=== PATIENT | female | born 1980 | race Caucasian/White ===

== ENCOUNTER 2022-04-23 03:27 | Emergency (ER) | payer OTHER, MEDICAID, SELFPAY ==
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
--- NOTE | 2022-04-23 03:29 | ECG_ITS ---
Measurements Intervals [place] Rate: 71 P: 51 [place]: 138 QRS: 62 QRSD: 96 T: 80 QT: 387 QTc: 423 Interpretive Statements SINUS RHYTHM NORMAL ELECTROCARDIOGRAM COMPARED TO ECG 06/24/2019 06:53:58 NO SIGNIFICANT CHANGES Electronically Signed On 04-23-2022 8:26:53 CDT by Nahid Mejia M.D.
[2022-04-23 03:32] VITALS: BP 127/91; PULSE 101; RESP 21; TEMP 36.3; O2SAT 95
[2022-04-23 04:10] LABS: Basophils Absolute Auto 0.1 K/mm3 (0.0-0.1); Basophils Percent Auto 0.7 % (0.2-1.2); Eosinophils Absolute Auto 0.4 K/mm3 (0-0.3); Eosinophils Percent Auto 3.9 % (0-4.4); Hematocrit 51.9 % (37.0-47.0); Hemoglobin 16.6 g/dL (12.0-15.0); Immature Granulocyte Absolute 0.02 K/mm3 (0.00-0.031); Immature Granulocyte Percent A 0.2 % (0-0.5); Lymphocytes Absolute Auto 3.95 K/mm3 (0.9-3.2); Lymphocytes Percent Auto 40.2 % (18.3-44.2); Mean Corpuscular Hemoglobin 29.3 pg (26-34); Mean Corpuscular Volume 91.5 fl (80-100); Monocytes Absolute Auto 0.7 K/mm3 (0.1-0.6); Monocytes Percent Auto 6.6 % (2.6-8.5); Neutrophils Absolute Auto 4.8 K/mm3 (1.3-6.7); Neutrophils Percent Auto 48.4 % (45.5-73.1); Platelet Count Result 286 k/mm3 (150-375); Red Blood Count 5.67 M/mm3 (4.2-5.4); Red Cell Distribution Width 12.8 % (11.5-14.5); White Blood Count 9.8 K/mm3 (4.5-10.0)
[2022-04-23] MEDS: IBUPROFEN 400 MG TABLET 800 MG PO (04:20)
[2022-04-23] MEDS: ACETAMINOPHEN 500 MG TABLET 1000 MG PO (04:20)
[2022-04-23 04:21] LABS: INR 0.9; Prothrombin Time 11.9 Seconds (11.1-14.7)
[2022-04-23 04:22] LABS: Partial Thromboplastin Time 28.8 SECONDS (22.3-36.8)
[2022-04-23 04:23] LABS: Alanine Aminotransferase 22 U/L (6-35); Albumin Level 4.7 g/dL (3.5-5.1); Alkaline Phosphatase 74 U/L (38-126); Anion Gap 9 mmol/L (8-16); Aspartate Amino Transferase 24 U/L (14-36); Bilirubin,Total 0.4 mg/dL (0.2-1.3); Blood Urea Nitrogen 13 mg/dL (7-17); Carbon Dioxide 30 mmol/L (22-30); Chloride 104 mmol/L (98-107); Estimated CRCL calculation 99 ml/min; Estimated Glomerular Filt Rate > 60; Glucose 105 mg/dL (65-110); Lipase 147 U/L (23-300); Potassium 4.2 mmol/L (3.4-5.0); Sodium 143 mmol/L (137-145)
[2022-04-23 04:34] LABS: Troponin I < 0.012 ng/mL (0.000-0.034)
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
[2022-04-23 05:36] VITALS: BP 108/73; PULSE 84; RESP 20; O2SAT 99
== END 2022-04-23 05:39 | disposition home or self-care (01) ==
PROVIDERS: Emergency Provider Emergency Medicine
DX: S29.9XXA Unspecified injury of thorax, initial encounter (principal); F41.9 Anxiety disorder, unspecified; F31.81 Bipolar II disorder; V18.4XXA Pedal cycle driver injured in noncollision transport accident in traffic accident, initial encounter; Y93.55 Activity, bike riding
CPT/HCPCS: 36415; 71046; 71110; 80053; 83690; 84484; 85025; 85610; 85730; 93005; 99284; A9270

== ENCOUNTER 2022-08-21 18:51 | Emergency (ER) | payer OTHER, MEDICAID, SELFPAY ==
--- NOTE | 2022-08-21 18:58 | PC.NURSE ---
patient left waiting room without being seen
== END 2022-08-21 19:26 | disposition left against medical advice (07) ==
DX: Z53.21 Procedure and treatment not carried out due to patient leaving prior to being seen by health care provider (principal)
CPT/HCPCS: 99199

== ENCOUNTER 2023-06-05 16:45 | Emergency (ER) | payer OTHER, MEDICAID, SELFPAY ==
[2023-06-05 17:17] VITALS: BP 124/85; PULSE 84; RESP 16; TEMP 37; O2SAT 99
--- NOTE | 2023-06-05 17:28 | ED.FEMALEGU ---
HPI - Female Genitourinary General Chief complaint: Abdominal Pain Stated complaint: UTI Time Seen by Provider: 06/05/23 17:28 Source: patient, RN notes reviewed and old records reviewed Mode of arrival: ambulatory Limitations: no limitations History of Present Illness HPI Narrative: 42-year-old female presents to the [facility] with complaints right lower quadrant pain that started yesterday. Patient states she has started yesterday with some right lower back, right lower quadrant pain yesterday has localized to the right lower quadrant. Denies fevers, chest pain. History of a cholecystectomy, denies any other medical or surgical history Onset (ago): day(s) (1) Related Data Home Medications Medication Instructions Recorded Confirmed olanzapine 2.5 mg tablet 2.5 mg PO DAILY 06/05/23 06/05/23 Allergies Allergy/AdvReac Type Severity Reaction Status Date / Time prednisone Allergy Unknown pain Verified 06/05/23 16:50 Review of Systems Review of Systems: All systems reviewed & are unremarkable except as noted in HPI and below Constitutional: Constitutional: Reports no additional constitutional complaints Eyes: Eyes: Reports no additional eye complaints ENT: Reports system reviewed and no additional complaints, except as documented Cardiovascular: Cardiovascular: Reports no additional cardiovascular complaints, Denies chest pain and Denies dyspnea Respiratory: Respiratory: Reports no additional respiratory complaints, Denies chest congestion, Denies cough and Denies dyspnea Gastrointestinal: Gastrointestinal: Reports as per HPI, Reports abdominal pain (Right lower quadrant), Reports nausea and Denies vomiting Musculoskeletal: Musculoskeletal: Reports no additional musculoskeletal complaints Integumentary/Breasts: Skin/Breast: Reports system reviewed and no additional complaints, except as docu Neurologic: Reports system reviewed and no additional complaints, except as documented Psychiatric: Psychiatric: Reports no additional psychiatric complaints Allergic/Immunologic: Allergic/Immunologic: Reports no additional allergic/immunologic complaints [facility] Past Medical History Medical History Anxiety Bipolar 2 disorder Surgical History Surgical History History of cholecystectomy Hx laparoscopic cholecystectomy Social History Social History Social History: Patient denies alcohol use, smokes pack cigarettes per day Alcohol intake: current Comments At the time of my signature, I reviewed and agree with the nursing past medical, surgical, social, and family history. There is no relevant family history pertinent to the patient complaint. Exam Const: General: cooperative, healthy appearing, comfortable, no acute distress, well developed, alert and well nourished Nutritional Appearance: well nourished Orientation/consciousness: patient oriented x3 Limitations: no limitations HENMT: Head: normal to inspection Ears: hearing grossly normal bilaterally and external ears normal Face/Nose/Sinus: Normal external nose present, Normal nares present, Normal nasal mucous membranes and turbinates present, normal facial exam and face symmetric Face and sinus: normal facial exam and face symmetric Mouth: Yes Normal oral and palatal mucosa present, Yes lip normal and Yes moist mucous membranes Throat: posterior oropharynx normal and uvula midline Eyes: General: appearance normal, both eyes and all related structures Alignment and Position: alignment normal Periorbital: periorbital findings normal Pupils: Equal, round and reactive pupils present EOM: EOMs intact bilaterally Neck: Neck: normal visual inspection, full ROM, no lymphadenopathy and no meningeal signs Chest: Chest palpation & inspection: normal inspection of the chest Resp: Effort & Inspection:
== END 2023-06-05 17:53 | disposition short-term general hospital (02) ==
LOC: EXPCOLL 16:48
PROVIDERS: Emergency Provider Nurse Practitioner
DX: R10.31 Right lower quadrant pain (principal)
CPT/HCPCS: 81003; 99212; G0463

== ENCOUNTER 2023-06-05 18:22 | Emergency (ER) | payer OTHER, MEDICAID, SELFPAY | END 2023-06-05 18:30 | disposition left against medical advice (07) | DX: Z53.21 Procedure and treatment not carried out due to patient leaving prior to being seen by health care provider (principal) | CPT/HCPCS: 99199 ==

== ENCOUNTER 2023-07-25 16:19 | Emergency (ER) | payer OTHER, MEDICAID, SELFPAY ==
[2023-07-25 16:31] VITALS: BP 113/78; PULSE 89; RESP 16; TEMP 39.1; O2SAT 98
--- NOTE | 2023-07-25 17:17 | ED.URI ---
HPI - URI/Sore Throat General Chief Complaint: Upper Respiratory Infection Stated Complaint: fever,cough,sore throat,nose congested Time Seen by Provider: 07/25/23 17:17 Source: patient and RN notes reviewed Mode of arrival: ambulatory Limitations: no limitations History of Present Illness HPI Narrative: 42-year-old female presented for complaint of scratchy throat yesterday; started with nonproductive cough and fever today. Denies shortness of breath, wheezing nausea vomiting diarrhea or lethargy. Patient smokes 1 pack per day. She is taking DayQuil and Sudafed for symptoms. Denies sick contacts. MD elicited complaint: cough Related Data Home Medications Medication Instructions Recorded Confirmed clonazepam 0.5 mg tablet 0.5 mg PO DAILY 07/25/23 07/25/23 Allergies Allergy/AdvReac Type Severity Reaction Status Date / Time prednisone Allergy Unknown pain Verified 07/25/23 16:41 Review of Systems Review of Systems: CONSTITUTIONAL: Endorses malaise, chills, sweats, fever EYES: Denies visual changes, redness, or discharge ENT: rhinorrhea, sore throat; denies sinus pain, otalgia CARDIOVASCULAR: Denies chest pain, palpitations, edema RESPIRATORY: Reports cough, post nasal drainage. Denies dyspnea GASTROINTESTINAL: Denies abdominal pain, nausea, vomiting, diarrhea SKIN: Denies rash or itching MUSCULOSKELETAL: Endorses myalgia NEUROLOGIC: Denies headache PMFSH Past Medical History Medical History (Updated 07/25/23 @ 17:58 by Jessica Trujillo APRN) Acute cholecystitis with chronic cholecystitis Anxiety Bipolar 2 disorder Surgical History Surgical History History of cholecystectomy Hx laparoscopic cholecystectomy Social History Social History Social History: Patient denies alcohol use, smokes pack cigarettes per day Alcohol intake: current Exam Narrative: GENERAL: mildly Ill-appearing, nontoxic no acute distress. HEAD: Normocephalic EYES: PERRLA, conjunctivae clear ENT: Mucous membranes moist. TMs pearly oleary with dull light reflex bilaterally; no tragal tenderness. Oropharynx erythematous without lesions or exudate, no drooling, no hoarseness, no trismus, uvula midline. No tripod positioning, muffled voice, soft palate or pharyngeal wall bulging NECK: Supple. No lymphadenopathy CHEST: Clear to auscultation, breath sounds equal. No wheezing, rhonchi, rales, or stridor. No respiratory distress, speaks in full sentences. HEART: Regular rate and rhythm. No murmur heard. SKIN: Warm, dry, no rash. NEURO: Alert and oriented x3. PSYCH: Normal mood and affect Course Course Emergency Course: Patient is aware of diagnosis, understands and agrees to treatment plan. Anticipatory guidance given. Patient agrees to follow-up as directed and is aware of reasons to seek care at the emergency department. Portions of this record may have been created with voice recognition software Level of Care: Express Care Visit Vital Signs Vital signs: Vital Signs Temperature 102.3 F H 07/25/23 16:31 Pulse Rate 89 07/25/23 16:31 Respiratory Rate 16 07/25/23 16:31 Blood Pressure 113/78 07/25/23 16:31 Pulse Oximetry 98 07/25/23 16:31 Oxygen Delivery Room Air 07/25/23 16:31 Temperature 102.3 F H 07/25/23 16:31 Pulse Rate 89 07/25/23 16:31 Respiratory Rate 16 07/25/23 16:31 Blood Pressure 113/78 07/25/23 16:31 Pulse Oximetry 98 07/25/23 16:31 Oxygen Delivery Room Air 07/25/23 16:31 reviewed MDM - URI/Sore Throat MDM Narrative Medical decision making narrative: negative COVID, flu, strep. Results reviewed with patient. Discussed physical exam findings. Advised supportive measures and signs/symptoms to go to the ER. Pt is appropriate for outpt treatment and f/u. Differential Diagnosis Differential diagnosis: Likely upper respiratory infection, sinusitis
== END 2023-07-25 18:05 | disposition home or self-care (01) ==
PROVIDERS: Emergency Provider Nurse Practitioner Family
DX: B34.9 Viral infection, unspecified (principal); Z20.822 Contact with and (suspected) exposure to COVID-19; F17.210 Nicotine dependence, cigarettes, uncomplicated; F41.9 Anxiety disorder, unspecified
CPT/HCPCS: 87081; 87426; 87804; 87880; 99213; C9803; G0463

== ENCOUNTER 2023-08-05 13:05 | Emergency (ER) | payer OTHER, MEDICAID, SELFPAY ==
[2023-08-05 13:15] VITALS: BP 111/81; PULSE 86; RESP 16; TEMP 37.2; O2SAT 98
--- NOTE | 2023-08-05 14:45 | ED.GENADULT ---
HPI - General Adult General Chief complaint: Skin/Abscess/Foreign Body Stated complaint: boil on stomach painful Source: patient Mode of arrival: ambulatory Limitations: no limitations History of Present Illness HPI narrative: Patient presents for evaluation of painful swollen lesion to the skin of the abdomen for the last 3 days. She reports associated erythema. Pain is worse to touch, rated 7/10 severity, without descriptive quality. She denies any fever, chills, nausea, vomiting, drainage from the affected area. She is not diabetic. She smokes about 1 pack per day. No additional complaints or concerns. Related Data Home Medications Medication Instructions Recorded Confirmed clonazepam 0.5 mg tablet 0.5 mg PO DAILY 07/25/23 08/05/23 escitalopram oxalate 5 mg tablet 5 mg PO DAILY 08/05/23 08/05/23 Allergies Allergy/AdvReac Type Severity Reaction Status Date / Time prednisone Allergy Unknown pain Verified 08/05/23 13:12 Review of Systems Review of Systems: CONSTITUTIONAL: Denies fever, chills, or sweats. EYES: Denies visual changes, redness, or discharge. ENT: Denies rhinorrhea, congestion, sore throat, or otalgia. CARDIOVASCULAR: Denies chest pain, palpitations, or edema. RESPIRATORY: Denies cough or dyspnea. GASTROINTESTINAL: Denies abdominal pain, nausea, vomiting, or diarrhea. GENITOURINARY: Denies dysuria or hematuria. SKIN: reports painful swollen lesion to the abdomen with associated redness MUSCULOSKELETAL: Denies back pain, joint pain, or myalgia. NEUROLOGIC: Denies headache, numbness, dizziness, or weakness. PSYCHIATRIC: Denies anxiety or depression. [facility] Past Medical History Medical History Acute cholecystitis with chronic cholecystitis Anxiety Bipolar 2 disorder Skin abscess Surgical History Surgical History History of cholecystectomy Hx laparoscopic cholecystectomy Family History Family History (Updated 08/05/23 @ 14:47 by WILLIAM Price, ANNABELLE) Mother Family history non-contributory Social History Social History Social History: Patient denies alcohol use, smokes pack cigarettes per day Smoking packs per day: 1 Smoking cigarettes per day: 20.0 Smoking status: Current every day smoker Alcohol intake: current Living arrangements: with family Gender identity (if verbalized by the patient): Female Spiritual care concerns: No Exam Narrative: GENERAL: Well-appearing, well-nourished, and in no acute distress. HEAD: Normocephalic, atraumatic. EYES: PERRLA and EOMI. ENT: Nares clear, no rhinorrhea or epistaxis. Mucous membranes moist. Oropharynx without tonsillar hypertrophy exudate or other lesions. Bilateral TMs pearly oleary nonbulging NECK: Supple. No adenopathy or masses. No carotid bruits or JVD CHEST: Clear to auscultation. No respiratory distress. No wheezes rales or rhonchi HEART: Regular rate and rhythm. No murmur heard. Normal peripheral pulses. ABDOMEN: Soft, nontender, nondistended, normal active bowel sounds. EXTREMITIES: Normal range of motion. No edema. SKIN: Approximately 3 cm area of raised erythema to the abdomen overlying striae which is tender to palpation. There is underlying fluctuance NEURO: No focal deficits. Alert and oriented x3. PSYCH: Normal mood and affect. Course Course Emergency Course: This is a 42-year-old female who presented for evaluation of a painful swollen lesion to the abdomen. after obtaining informed consent, incision and drainage was performed. Wound culture obtained. Wound packed. Patient tolerated well. Will dc with keflex, bactrim and hydrocodone. Follow-up with primary provider. Go to the ER for worsening symptoms. Patient in agreement with plan of care Level of Care: Express Care Visit Vital Signs Vital signs:
== END 2023-08-05 14:48 | disposition home or self-care (01) ==
PROVIDERS: Emergency Provider Nurse Practitioner
DX: L02.211 Cutaneous abscess of abdominal wall (principal); B96.89 Other specified bacterial agents as the cause of diseases classified elsewhere; F41.9 Anxiety disorder, unspecified; F31.81 Bipolar II disorder
CPT/HCPCS: 10061; 87070; 87075; 87076; 87205; 99213; G0463

== ENCOUNTER 2024-02-12 10:44 | Emergency (ER) | payer OTHER, MEDICAID, SELFPAY ==
[2024-02-12 10:53] VITALS: BP 118/82; PULSE 91; RESP 20; TEMP 37.2; O2SAT 99
--- NOTE | 2024-02-12 11:12 | ED.URI ---
HPI - URI/Sore Throat General Chief Complaint: Upper Respiratory Infection Stated Complaint: Chest Pain,Cough,Diarrhea Time Seen by Provider: 02/12/24 11:13 Source: patient and RN notes reviewed Mode of arrival: ambulatory Limitations: no limitations History of Present Illness HPI Narrative: 43-year-old female presents with concern of for one-month history of cough, rib pain when she coughs, wheezing. Reports 1 month ago she took amoxicillin and was prescribed an inhaler. Reports the amoxicillin did not help, the inhaler did help but she is out of it. She reports history of 1/2 pack per day smoking. She reports shortness of breath. Reports she had nasal congestion or rhinorrhea at the beginning of her symptoms with that is results. MD elicited complaint: cough Related Data Home Medications Medication Instructions Recorded Confirmed clonazepam 0.5 mg tablet 0.5 mg PO DAILY 07/25/23 08/05/23 escitalopram oxalate 5 mg tablet 5 mg PO DAILY 08/05/23 08/05/23 albuterol sulfate 90 mcg/actuation inhalation 02/12/24 aerosol inhaler Allergies Allergy/AdvReac Type Severity Reaction Status Date / Time prednisone Allergy Unknown pain Verified 02/12/24 10:55 Review of Systems Review of Systems: CONSTITUTIONAL: Reports malaise. Denies chills, sweats, or fever. EYES: Denies visual changes, redness, or discharge. ENT: Denies rhinorrhea, congestion, sinus pain, otalgia and sore throat. CARDIOVASCULAR: Denies chest pain, palpitations, or edema. RESPIRATORY: Reports cough, dyspnea. Reports rib pain with coughing GASTROINTESTINAL: Denies abdominal pain, nausea, vomiting, diarrhea SKIN: Denies rash or itching. MUSCULOSKELETAL: Denies myalgia. NEUROLOGIC: Denies headache. All systems reviewed & are unremarkable except as noted in HPI and below PMFSH Past Medical History Medical History Acute cholecystitis with chronic cholecystitis Anxiety Bipolar 2 disorder Skin abscess Surgical History Surgical History History of cholecystectomy Hx laparoscopic cholecystectomy Family History Family History (Updated 08/05/23 @ 14:47 by WILLIAM Price, ANNABELLE) Mother Family history non-contributory Social History Social History Social History: Patient denies alcohol use, smokes pack cigarettes per day Smoking packs per day: 1 Smoking cigarettes per day: 20.0 Smoking status: Current every day smoker Alcohol intake: current Living arrangements: with family Gender identity (if verbalized by the patient): Female Spiritual care concerns: No Comments At time of signature, agree with nursing past medical, surgical, social and family history. There is no relevant family history pertinent to the presenting complaint Exam Narrative: GENERAL: Well-appearing, well-nourished, and in no acute distress. HEAD: Normocephalic EYES: PERRLA, conjunctivae clear ENT: Nares clear. Mucous membranes moist. TM pearly oleary with sharp light reflex bilaterally; no tragal tenderness. Oropharynx not erythematous without lesions. Tonsils not enlarged and without exudate, no drooling, no hoarseness, no trismus, uvula midline. NECK: Supple. No lymphadenopathy CHEST: Expiratory wheeze throughout, breath sounds equal. No rhonchi, rales, or stridor. No respiratory distress, speaks in full sentences. HEART: Regular rate and rhythm. No murmur heard. SKIN: Warm, dry, no rash. NEURO: Alert and oriented x3. PSYCH: Normal mood and affect Course Course Emergency Course: Patient is aware of diagnosis, understands and agrees to treatment plan. Anticipatory guidance given. Patient agrees to follow-up as directed and is aware of reasons to seek care at the emergency department. Portions of this record may have been created with voice recognition software Level
== END 2024-02-12 11:20 | disposition home or self-care (01) ==
PROVIDERS: Emergency Provider Nurse Practitioner
DX: J22 Unspecified acute lower respiratory infection (principal); F17.210 Nicotine dependence, cigarettes, uncomplicated; F41.9 Anxiety disorder, unspecified
CPT/HCPCS: 99213; G0463

== ENCOUNTER 2024-03-30 11:06 | Emergency (ER) | payer OTHER, MEDICAID, SELFPAY ==
[2024-03-30 11:18] VITALS: BP 110/87; PULSE 89; RESP 16; TEMP 37.2; O2SAT 96
--- NOTE | 2024-03-30 11:56 | ED.GENADULT ---
HPI - General Adult General Chief complaint: Upper Respiratory Infection Stated complaint: SOB,Hx bronchitis Time Seen by Provider: 03/30/24 11:56 Source: patient Mode of arrival: ambulatory Limitations: no limitations History of Present Illness HPI narrative: 43-year-old female patient presents to the [facility] with complaints of cough and shortness of breath for the past 2-3 days. Patient is an active smoker and states she was diagnosed with bronchitis back in January of this year. Patient denies any fevers, body aches or chills denies any pain to the ears or throat. Patient stated it is just the cough and the shortness of breath. Denies any abdominal pain, nausea, vomiting or diarrhea. Patient states she has tried taking [id number] cough medication without relief. Related Data Home Medications Medication Instructions Recorded Confirmed clonazepam 0.5 mg tablet 0.5 mg PO DAILY 07/25/23 03/30/24 cetirizine 10 mg tablet (Zyrtec) 10 mg PO DAILY 03/30/24 03/30/24 escitalopram oxalate 10 mg tablet 10 mg PO DAILY 03/30/24 03/30/24 Allergies Allergy/AdvReac Type Severity Reaction Status Date / Time No Known Allergies Allergy Verified 03/30/24 11:55 Review of Systems Review of Systems: CONSTITUTIONAL: Denies fever, chills, or sweats. EYES: Denies visual changes, redness, or discharge. ENT: Denies rhinorrhea, congestion, sore throat, or otalgia. CARDIOVASCULAR: Denies chest pain, palpitations, or edema. RESPIRATORY: Positive cough with dyspnea. GASTROINTESTINAL: Denies abdominal pain, nausea, vomiting, or diarrhea. GENITOURINARY: Denies dysuria or hematuria. SKIN: Denies rash or itching. MUSCULOSKELETAL: Denies back pain, joint pain, or myalgia. NEUROLOGIC: Denies headache, numbness, or weakness. PSYCHIATRIC: Denies anxiety or depression. [facility] Past Medical History Medical History Acute cholecystitis with chronic cholecystitis Anxiety Bipolar 2 disorder Skin abscess Surgical History Surgical History History of cholecystectomy Hx laparoscopic cholecystectomy Family History Family History Mother Family history non-contributory Social History Social History Social History: Patient denies alcohol use, smokes pack cigarettes per day Smoking packs per day: 1 Smoking cigarettes per day: 20.0 Smoking status: Current every day smoker Alcohol intake: current Living arrangements: with family Gender identity (if verbalized by the patient): Female Spiritual care concerns: No Comments At the time of my signature I agree with nursing past medical history, surgical, social, and family history. There is no relevant family history pertinent to the presenting complaint. Exam Narrative: GENERAL: Well-appearing, well-nourished, and in no acute distress. HEAD: Normocephalic, atraumatic. EYES: PERRLA and EOMI. ENT: Nares clear, no rhinorrhea or epistaxis. Mucous membranes moist. Posterior pharynx with no erythema, tonsillar enlargement, exudates or lesions present. Bilateral TMs are clear no erythema foreign bodies the canal. NECK: Supple. No lymphadenopathy CHEST: Patient has inspiratory and expiratory wheezing noted to bilateral upper lower lobes. Patient does have a cough noted during exam as well as talking in broken sentences but no tripoding noted. HEART: Regular rate and rhythm. No murmur heard. Normal peripheral pulses. ABDOMEN: Soft, nontender, nondistended, normal active bowel sounds. EXTREMITIES: Normal range of motion. No edema. SKIN: Warm, dry, no rash. NEURO: No focal deficits. Alert and oriented x3. Course Course Level of Care: Express Care Visit Reevaluation(s) Reevaluation #1: Re-evaluated patient after her DuoNeb completed. Patient's wheezing it has much
[2024-03-30] MEDS: IPRATROPIUM 0.5 MG/ALBUTEROL SULFATE 2.5 MG AMPUL.NEB 3 ML INHALATION (12:11)
== END 2024-03-30 12:50 | disposition home or self-care (01) ==
PROVIDERS: Emergency Provider Nurse Practitioner Family
DX: J40 Bronchitis, not specified as acute or chronic (principal); F17.210 Nicotine dependence, cigarettes, uncomplicated; F41.9 Anxiety disorder, unspecified
CPT/HCPCS: 94640; 99213; G0463

== ENCOUNTER 2024-04-18 03:50 | Observation (INO) | payer OTHER, MEDICAID, SELFPAY ==
[2024-04-18] VITALS (43 sets, daily range): BP systolic 112–134; BP diastolic 64–98; PULSE 71–105; RESP 14–29; TEMP 36.4–37.1; O2SAT 89–100
--- NOTE | ~2024-04-18 | XR_ITS ---
Portable chest x-ray Comparison: 04/23/2022 Clinical History: Dyspnea Findings: Possible COPD and minimal bibasilar chronic interstitial change. No acute pulmonary abnorm ality seen. No pleural effusion or pneumothorax. Cardiomediastinal silhouette is stable. Stable scol iosis. Impression: Suspected COPD and minimal bibasilar chronic interstitial change. Reviewed, dictated and finalized at location . Impression: Suspected COPD and minimal bibasilar chronic interstitial change.
--- NOTE | ~2024-04-18 | CT_ITS ---
EXAMINATION: CTA chest PE protocol DATE: 04/18/2024 11:01 INDICATION: Shortness of breath. Chest pain. TECHNIQUE: Computed tomography angiography (CTA) of the chest was performed with 100 mL Omnipaque-350 intravenous contrast timed to evaluate the pulmonary arteries. Coronal maximum intensity projection 3D-reconstructions were created by the technologist. Automated exposure control and iterative reconst ruction technique were employed. The dose-length product was 409.51 mGy-cm. COMPARISON: Chest CT 01/06/2018 FINDINGS: There is mild emphysema. There are patchy groundglass opacities in all lobes with a periphe ral predominance. No pleural effusion. The heart size is normal. No pericardial effusion. There is no pulmonary embolus. There is a small sliding hiatal hernia. There are changes of cholecystectomy. The re is thoracic levoscoliosis and thoracolumbar dextroscoliosis. IMPRESSION: 1. No pulmonary embolus. 2. Mild emphysema. 3. Mild groundglass opacities in all lobes, consistent with atypical pneumonia versus mild pulmonary edema. Reviewed, dictated and finalized at location A.
--- NOTE | 2024-04-18 04:00 | ECG_ITS ---
Test Date: 2024-04-18 03:57:34 Measurements Intervals [place] Rate: 104 P: 76 [place]: 137 QRS: 88 QRSD: 97 T: 81 QT: 354 QTc: 466 Interpretive Statements SINUS TACHYCARDIA ABNORMAL RHYTHM ECG No previous ECG available for comparison Electronically Signed On 04-18-2024 11:30:53 CDT by Nahid Mejia M.D.
[2024-04-18 04:08] LABS: Basophils Absolute Auto 0.1 K/mm3 (0.0-0.1); Basophils Percent Auto 0.5 % (0.2-1.2); Eosinophils Absolute Auto 0.5 K/mm3 (0-0.3); Eosinophils Percent Auto 4.5 % (0-4.4); Hematocrit 50.6 % (37.0-47.0); Hemoglobin 16.3 g/dL (12.0-15.0); Immature Granulocyte Absolute 0.04 K/mm3 (0.00-0.031); Immature Granulocyte Percent A 0.4 % (0-0.5); Lymphocytes Absolute Auto 3.32 K/mm3 (0.9-3.2); Lymphocytes Percent Auto 30.6 % (18.3-44.2); Mean Corpuscular HGB Conc 32.2 g/dl (32-36); Mean Corpuscular Hemoglobin 29.9 pg (26-34); Mean Corpuscular Volume 92.8 fl (80-100); Mean Platelet Volume 9.5 fl (7.4-10.4); Monocytes Absolute Auto 0.8 K/mm3 (0.1-0.6); Monocytes Percent Auto 6.9 % (2.6-8.5); Neutrophils Absolute Auto 6.2 K/mm3 (1.3-6.7); Neutrophils Percent Auto 57.1 % (45.5-73.1); Platelet Count Result 311 k/mm3 (150-375); Red Blood Count 5.45 M/mm3 (4.2-5.4); Red Cell Distribution Width 12.6 % (11.5-14.5); White Blood Count 10.9 K/mm3 (4.5-10.0)
--- NOTE | 2024-04-18 04:12 | PC.NURSE ---
1st set of blood cultures obtained rt ac. yisel label in bag with cultures.
[2024-04-18] MEDS: ALBUTEROL SULFATE NEB 2.5 MG/3 ML INH 10 MG INHALATION (04:14)
[2024-04-18] MEDS: IPRATROPIUM BR 0.02% INH SOLN 0.5 MG/2.5 ML VIAL 1 MG INHALATION (04:14)
[2024-04-18] MEDS: methylPREDNISolone SOD SUCC 125 MG VIAL IV PUSH (04:18)
[2024-04-18 04:19] LABS: Alanine Aminotransferase 23 U/L (6-35); Albumin Level 4.8 g/dL (3.5-5.1); Alkaline Phosphatase 75 U/L (38-126); Anion Gap 11 mmol/L (4-12); Aspartate Amino Transferase 27 U/L (14-36); Bilirubin,Total 0.9 mg/dL (0.2-1.3); Blood Urea Nitrogen 12 mg/dL (7-17); Calcium 9.3 mg/dL (8.4-10.2); Carbon Dioxide 29 mmol/L (22-30); Chloride 101 mmol/L (98-107); Estimated CRCL calculation 95 ml/min; Estimated Glomerular Filt Rate > 60; Glucose 130 mg/dL (65-110); INR 0.9; Lactic Acid Reflex 1.2 mmol/L (0.7-2.0); Magnesium 2.1 mg/dL (1.6-2.3); Partial Thromboplastin Time 30.9 Seconds (22.3-36.8); Potassium 3.9 mmol/L (3.4-5.0); Prothrombin Time 12.9 Seconds (11.1-14.7); Sodium 141 mmol/L (137-145)
[2024-04-18 04:27] LABS: NT Pro B Type Natriuretic Pept 33 pg/mL (19.9-100)
[2024-04-18 04:28] LABS: Alveolar/Arterial O2 Gradient 81.1 mmHg; Base Excess ABG -0.2 mEq/l (+/-2.0); Fractional Inspired Oxygen 28 %; HCO3 ABG 24.5 mEq/l (22.0-26.0); Oxygen Content ABG 20.3 %vol (16.0-22.0); Oxygen Saturation ABG 94.4 % (95.0-100.0); Oxyhemoglobin 90.2 % THb (90.0-100.0); PCO2 ABG 40.3 mmHg (35.0-45.0); PO2 FiO2 Ratio Arterial Blood 2.54 %; pH ABG 7.402 (7.350-7.450)
[2024-04-18 04:29] LABS: Device NASAL CANNULA; Site Drawn RIGHT BRACHIAL
[2024-04-18 04:52] LABS: Influenza A QL RT-PCR Negative (Negative); Influenza B QL RT-PCR Negative (Negative); RSV RNA, RT-PCR Negative (Negative); SARS-CoV-2 RNA PCR Negative (Negative)
[2024-04-18 04:54] LABS: Troponin I < 0.012 ng/mL (0.000-0.034)
--- NOTE | 2024-04-18 05:38 | ED.GENADULT ---
HPI - General Adult General Chief complaint: Shortness of Breath/Dyspnea Stated complaint: sob Time Seen by Provider: 04/18/24 04:00 History of Present Illness HPI narrative: Patient is a 43-year-old female who presents emergency department with chief complaint of shortness of breath. Patient reports symptoms have been getting worse for the last several days reports she has been recently treated for bronchitis after being seen in urgent care the patient reports that she has history of asthma but has never been officially diagnosed with COPD but does smoke cigarettes. The patient reports today her breathing got significantly worse reports he has never been intubated does report that she has been recently treated with steroids without relief. Related Data Home Medications Medication Instructions Recorded Confirmed clonazepam 0.5 mg tablet 0.5 mg PO DAILY 07/25/23 03/30/24 cetirizine 10 mg tablet (Zyrtec) 10 mg PO DAILY 03/30/24 03/30/24 escitalopram oxalate 10 mg tablet 10 mg PO DAILY 03/30/24 03/30/24 Allergies Allergy/AdvReac Type Severity Reaction Status Date / Time No Known Allergies Allergy Verified 03/30/24 11:55 Review of Systems Review of Systems: A 10 system review of systems was completed on the patient and is negative except for what is stated in the HPI. Nursing and ancillary documentation was reviewed. [facility] Past Medical History Medical History Acute cholecystitis with chronic cholecystitis Anxiety Bipolar 2 disorder Skin abscess Surgical History Surgical History History of cholecystectomy Hx laparoscopic cholecystectomy Family History Family History Mother Family history non-contributory Social History Social History Social History: Patient denies alcohol use, smokes pack cigarettes per day Smoking packs per day: 1 Smoking cigarettes per day: 20.0 Smoking status: Current every day smoker Alcohol intake: current Living arrangements: with family Gender identity (if verbalized by the patient): Female Spiritual care concerns: No Exam Narrative: GENERAL: Well-appearing, well-nourished, and in mild acute respiratory distress. HEAD: Normocephalic, atraumatic. EYES: PERRLA and EOMI. ENT: Nares clear, no rhinorrhea or epistaxis. Mucous membranes moist. NECK: Supple. CHEST: Diffuse wheezing to auscultation. Mild respiratory distress. Able to speak in short sentences HEART: Regular rate and rhythm. No murmur heard. Normal peripheral pulses. ABDOMEN: Soft, nontender, nondistended, normal active bowel sounds. EXTREMITIES: Normal range of motion. No edema. SKIN: Warm, dry, no rash. NEURO: No focal deficits. Alert and oriented x3. PSYCH: Normal mood and affect. Course Vital Signs Vital signs: Vital Signs Temperature 36.8 C 04/18/24 03:54 Pulse Rate 105 H 04/18/24 03:54 Respiratory Rate 15 04/18/24 03:54 Blood Pressure 132/82 04/18/24 03:54 Pulse Oximetry 93 04/18/24 03:54 Oxygen Delivery Room Air 04/18/24 03:54 Temperature 36.8 C 04/18/24 03:54 Pulse Rate 96 04/18/24 05:32 Respiratory Rate 22 H 04/18/24 05:32 Blood Pressure 124/84 04/18/24 05:16 Pulse Oximetry 99 04/18/24 05:16 Oxygen Delivery Nasal Cannula 04/18/24 04:30 Oxygen Flow Rate 2 04/18/24 04:30 Medical Decision Making [facility] Narrative Medical decision making narrative: Differential diagnosis includes pneumonia, COPD, asthma, pneumothorax, CHF, ACS EKG showed no acute ischemic changes Blood work showed normal CBC normal CMP troponin was negative BNP was negative chest x-ray showed no focal infiltrates and no pneumothorax. The patient received an hour long DuoNeb and is feeling much better but is still
--- NOTE | 2024-04-18 06:18 | PC.NURSE ---
o2 saturation at 86% and pt was placed on 2lnc
[2024-04-18 06:51] LABS: Add Urine Microscopic? YES; Appearance Urine Cloudy (Clear); Bacteria Urine 1+ /hpf; Bilirubin Urine Negative (Negative); Blood Urine 2+ (Negative); Color Urine Yellow (Yellow); Glucose Urine UA Negative (Negative); Ketones Urine Trace mg/dL (Negative); Leukocyte Esterase Ur Negative LEU/UL (Negative); Nitrate Urine Negative (Negative); Non Pathogenic Casts 0-2; Protein Urine Trace mg/dL (Negative); Specific Grav Ur 1.032 (1.001-1.035); Squamous Epithelial Cell Urine Few /hpf (Few); WBC Urine 0-5 /hpf (0-3); pH Urine 5.5 (5.0-9.0)
[2024-04-18] MEDS: IPRATROPIUM 0.5 MG/ALBUTEROL SULFATE 2.5 MG AMPUL.NEB 3 ML INHALATION ×3 (07:40→20:19)
--- NOTE | 2024-04-18 08:08 | PC.NURSE ---
Patient assisted to bedside commode by MURRAY Ibarra.
--- NOTE | 2024-04-18 08:23 | PC.NURSE ---
Breakfast tray ordered for patient
--- NOTE | 2024-04-18 09:23 | ADMGEN ---
This patient, Cynthia Iglesias, was admitted to 2 Medical Room 240-. Patient/family oriented to hospital policies and general routines including ID bracelet, bed and alarms, visiting hours, pain management, procedures, bathroom and other care routines, personal items, smoking policy, room service/diet, and visiting hours. Information on how to activate the Rapid Response Team has been discussed. Patient/Family are encouraged to report perceived risks to care and to ask questions if they do not understand what they are told or what they should do.
[2024-04-18] MEDS: AZITHROMYCIN 250 MG TABLET 500 MG PO (10:17)
[2024-04-18] MEDS: PANTOPRAZOLE 40 MG TABLET PO (10:17)
[2024-04-18] MEDS: ENOXAPARIN 40 MG/0.4 ML SYRINGE SUB-Q (10:18)
--- NOTE | 2024-04-18 10:45 | PM.IMHP ---
H&P: HPI History of Present Illness Date/Time: 04/18/24 10:45 Chief Complaint: SOB Narrative: Patient is a 43-year-old female who presented to the emergency department with complaints of worsening shortness of breath. Patient states it woke her from sleep unable to catch her breath. Patient reported she has been having difficulty breathing for the last few months and has been treated outpatient for bronchitis twice with no improvement. Patient with minimal medical history which includes anxiety and COPD. Patient denies any chest pain, nausea, vomiting, fever, chills, sick close contacts, or syncopal episodes. Polycythemia noted likely secondary to patient being chronic every day smoker, WBC mildly elevated 10.5 point however has had recent steroid use outpatient, CXR showing suspected COPD with minimal bibasilar chronic interstitial changes with ABG showing hypoxia. Patient states she attended to use her inhalers at home but has had no relief activity has made it worse and it is taking her more time to recover. Patient is being admitted to the medical unit under observation for COPD exacerbation for further evaluation and treatment. Review of Systems Review of Systems: All systems reviewed & are unremarkable except as noted in HPI and below PMFSH Past Medical History Medical History (Updated 04/18/24 @ 10:55 by Diane Licea APRN) Acute cholecystitis with chronic cholecystitis Anxiety Bipolar 2 disorder Skin abscess Surgical History Surgical History History of cholecystectomy Hx laparoscopic cholecystectomy Family History Family History Mother Family history non-contributory Social History Social History Social History: Patient denies alcohol use, smokes pack cigarettes per day Smoking packs per day: 1 Smoking cigarettes per day: 20.0 Years smoked: 30 Smoking pack-years: 30.00 Smoking status: Current every day smoker Alcohol intake: never Substance use: never Substance use type: does not use Do You Feel Safe in your Home?: Yes Lack of Transportation: No Lack of Food: Never True Current Housing: I Have Housing Concerned About Future Housing: No Difficulty Paying Gas/Electric Bills: No Difficulty Paying for Meds: No Currently Unemployed: No Education: Associate Degree Difficulty w/ Childcare or Family Care: No Living arrangements: with family Gender identity (if verbalized by the patient): Female Spiritual care concerns: No Meds Home Medications and Allergies Home Medications Medication Instructions Recorded Confirmed Type clonazepam 0.5 mg tablet 0.5 mg PO DAILY PRN Anxiety 07/25/23 04/18/24 History albuterol sulfate 90 mcg/actuation 2 puff inhalation .Q4 hours PRN 03/30/24 04/18/24 Rx aerosol inhaler (Ventolin HFA) cough #18 grams cetirizine 10 mg tablet (Zyrtec) 10 mg PO DAILY 03/30/24 04/18/24 History escitalopram oxalate 10 mg tablet 10 mg PO DAILY 03/30/24 04/18/24 History Allergies Allergy/AdvReac Type Severity Reaction Status Date / Time No Known Allergies Allergy Verified 03/30/24 11:55 Vital Signs Vital Signs - 24 hr 04/18/24 03:54 04/18/24 04:01 04/18/24 04:30 Temperature 98.3 F Pulse Rate 105 H 103 H Respiratory Rate 15 Blood Pressure 132/82 Pulse Oximetry 93 92 Oxygen Delivery Room Air Nasal Cannula Oxygen Flow Rate 2 04/18/24 04:15 04/18/24 03:56 04/18/24 03:57 Temperature Pulse Rate 93 96 103 H Respiratory Rate 24 H 17 28 H Blood Pressure 132/81 Pulse Oximetry 94 93 Oxygen Delivery Oxygen Flow Rate 04/18/24 04:00 04/18/24 04:01 04/18/24 04:15 Temperature Pulse Rate 100 102 H 98 Respiratory Rate 15 25 H 28 H Blood Pressure 119/87 Pulse Oximetry 96 92 96 Oxygen Delivery Oxygen Vaibhav
[2024-04-18] MEDS: ESCITALOPRAM OXALATE 10 MG TABLET PO (13:35)
[2024-04-18] MEDS: guaiFENesin 12 HR 600 MG TABCR 1200 MG PO ×2 (13:35→20:49)
[2024-04-18] MEDS: methylPREDNISolone SOD SUCC 125 MG VIAL 60 MG IV PUSH ×2 (13:35→20:51)
[2024-04-18] MEDS: LORATADINE 10 MG TABLET PO (20:49)
[2024-04-18] MEDS: NICOTINE (*PBKC) 21 MG PATCH 1 PATCH TRANSDERM (20:57)
[2024-04-19] VITALS (10 sets, daily range): BP systolic 118; BP diastolic 62; PULSE 68–93; RESP 18–20; TEMP 36.7–37.1; O2SAT 95–97
[2024-04-19] MEDS: IPRATROPIUM 0.5 MG/ALBUTEROL SULFATE 2.5 MG AMPUL.NEB 3 ML INHALATION ×2 (02:10→07:28)
[2024-04-19 04:29] LABS: Basophils Percent Auto 0.1 % (0.2-1.2); Hematocrit 46.1 % (37.0-47.0); Immature Granulocyte Absolute 0.09 K/mm3 (0.00-0.031); Immature Granulocyte Percent A 0.6 % (0-0.5); Lymphocytes Absolute Auto 1.15 K/mm3 (0.9-3.2); Lymphocytes Percent Auto 7.9 % (18.3-44.2); Mean Corpuscular HGB Conc 32.5 g/dl (32-36); Mean Corpuscular Hemoglobin 29.9 pg (26-34); Mean Corpuscular Volume 91.8 fl (80-100); Mean Platelet Volume 9.5 fl (7.4-10.4); Monocytes Absolute Auto 0.3 K/mm3 (0.1-0.6); Monocytes Percent Auto 2.1 % (2.6-8.5); Neutrophils Percent Auto 89.3 % (45.5-73.1); Platelet Count Result 280 k/mm3 (150-375); Red Blood Count 5.02 M/mm3 (4.2-5.4); Red Cell Distribution Width 12.2 % (11.5-14.5); White Blood Count 14.5 K/mm3 (4.5-10.0)
[2024-04-19 04:40] LABS: Anion Gap 11 mmol/L (4-12); Blood Urea Nitrogen 12 mg/dL (7-17); Calcium 9.5 mg/dL (8.4-10.2); Carbon Dioxide 22 mmol/L (22-30); Chloride 105 mmol/L (98-107); Estimated CRCL calculation 124 ml/min; Estimated Glomerular Filt Rate > 60; Glucose 196 mg/dL (65-110); Potassium 4.3 mmol/L (3.4-5.0); Sodium 138 mmol/L (137-145)
[2024-04-19] MEDS: methylPREDNISolone SOD SUCC 125 MG VIAL 60 MG IV PUSH (05:25)
[2024-04-19] MEDS: AZITHROMYCIN 250 MG TABLET PO (08:50)
[2024-04-19] MEDS: ENOXAPARIN 40 MG/0.4 ML SYRINGE SUB-Q (08:51)
[2024-04-19] MEDS: guaiFENesin 12 HR 600 MG TABCR 1200 MG PO (08:51)
[2024-04-19] MEDS: PANTOPRAZOLE 40 MG TABLET PO (08:51)
[2024-04-19] MEDS: ESCITALOPRAM OXALATE 10 MG TABLET PO (08:51)
--- NOTE | 2024-04-19 12:07 | PM.DS ---
DS: Admitting Diagnosis Discharge Date 04/19/2024 Admitting Diagnosis COPD exacerbation DS: Discharge Diagnosis Discharge Diagnosis (1) Acute exacerbation of chronic obstructive pulmonary disease: Code(s): J44.1 - Chronic obstructive pulmonary disease with (acute) exacerbation Status: Acute (2) Anxiety: Code(s): F41.9 - Anxiety disorder, unspecified Status: Acute (3) Nicotine dependence: Code(s): F17.200 - Nicotine dependence, unspecified, uncomplicated Status: Acute Plan COPD Bronchodilators. Chest x-ray: Suspected COPD interstitial changes incentive spirometry while awake. steroids initiated azithromycin 500 x 1 day/250 daily Often missing q.12 Claritin supplemental oxygen therapy to maintain oxygen 92% Pneumonia and flu vaccination advised. Pulmonary rehab if indicated. Disease management following GOLD guidelines. Repeat hospitalization risk evaluation per [facility] Evaluation from home O2 if saturation less than 88% on room air. Smoking cessation counseling done CTA to r/O PE recent car travel long distance Smoking ? smoking cessation education ? nicotine patch daily ? remove at night Anxiety Resumed home medications Code status: Full code per patient DVT prophylaxis: Lovenox Stress ulcer prophylaxis: Protonix 40 daily PT/OT notes: Ambulatory Disposition: Patient discharged home DS: Summary Hospital Course Reason for hospitalization: COPD exacerbation Hospital Course: Chief Complaint: SOB Narrative: Patient is a 43-year-old female who presented to the emergency department with complaints of worsening shortness of breath. Patient states it woke her from sleep unable to catch her breath. Patient reported she has been having difficulty breathing for the last few months and has been treated outpatient for bronchitis twice with no improvement. Patient with minimal medical history which includes anxiety and COPD. Patient denies any chest pain, nausea, vomiting, fever, chills, sick close contacts, or syncopal episodes. Polycythemia noted likely secondary to patient being chronic every day smoker, WBC mildly elevated 10.5 point however has had recent steroid use outpatient, CXR showing suspected COPD with minimal bibasilar chronic interstitial changes with ABG showing hypoxia. Patient states she attended to use her inhalers at home but has had no relief activity has made it worse and it is taking her more time to recover. Patient is being admitted to the medical unit under observation for COPD exacerbation for further evaluation and treatment. 04/18/2024: DISCHARGED Patient reported overall improvement with respiratory symptoms, no longer requiring oxygen and lung saleh with minimal wheezing. Discussed with patient the importance of smoking cessation and the need to have follow-up with a sap abap programmer outpatient. Patient was requesting to go home and felt she was back to her baseline. Provided ABX for atypical PNA/COPD exacerbation and a steroid burst pack. Patient at time of assessment with no complaints and appeared in no acute distress. Vitals stable and labs unremarkable other then elevated WBC abd BS likely due to recent steroid administration. Status at Discharge Functional status at discharge: independent ambulation Overall status at discharge: patient is back to baseline Time Spent with Patient Time attestation: Total time spent providing and/or coordinating discharge services: Time spent: Greater than 30 minutes Exam Narrative: Physical Exam: GENERAL: Alert and oriented x 3. No acute distress. EYES: EOMI. No scleral icterus. PERRLA. HEENT: Moist mucous membranes. LUNGS: diminished with mild wheezing on auscultation bilaterally ling saleh.No accessory muscle use, unlabored CARDIOVASCULAR: Regular rate and rhythm. No murmur. No JVD. S1-S2 ABDOMEN: Soft, non te
== END 2024-04-19 13:40 | disposition home or self-care (01) ==
LOC: ANHED 05:47 → ANH2MED 09:13 → ANH3MEDSUR 04-21 10:33
PROVIDERS: Admitting Provider Internal Medicine; Emergency Provider Emergency Medicine; Visit Provider Nurse Practitioner Family
DX: J44.1 Chronic obstructive pulmonary disease with (acute) exacerbation (principal); F31.9 Bipolar disorder, unspecified; F41.9 Anxiety disorder, unspecified; F17.210 Nicotine dependence, cigarettes, uncomplicated; Z20.822 Contact with and (suspected) exposure to COVID-19
CPT/HCPCS: 36415; 36600; 71045; 71275; 80048; 80053; 81001; 82805; 83605; 83735; 83880; 84484; 85025; 85610; 85730; 87040; 87637; 93005; 94640; 96365; 96372; 96374; 96375; 96376; 99285; A9270; G0378; J0696; J1650; J2919; Q9967

== ENCOUNTER 2024-11-03 07:29 | Outpatient (CLI) | payer OTHER, MEDICAID, SELFPAY ==
--- OUTSIDE RECORDS SUMMARY | 2024-11-03 07:32 | XMS_ITS | Clinical Summary ---
Author Organization [facility] at the Medical Office Building Address [address] [place] [id number] Care Team Providers Care Reprographics Technician Name Role Phone No, Physician Primary Care Provider [phone] Allergies No known active allergies Medications clonazePAM (KlonoPIN) 0.5 mg tablet Take by mouth daily as needed 03/03/2023 Active escitalopram (LEXAPRO) 5 mg tablet Take 1 tablet (5 mg total) by mouth daily 03/03/2023 Active Active Problems No known active problems Surgical History Surgery Date Site/Laterality Comments BREAST BIOPSY 04/09/2013 Right Family History Medical History Relation Name Comments Breast cancer Neg Hx Ovarian cancer Neg Hx Social History Tobacco Use Types Packs/Day Years Used Date Smoking Tobacco: Never Assessed Comments No Sex and Gender Information Value Date Recorded Sex Assigned at Not on file 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 Gender Identity Female 09/12/2023 12:34 PM 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 Sexual Orientation Not on file Obstetrics History Para Term AB IAB SAB Ectopic Multiple Livin g Live Births 2 1 1 1 1 Date Outcome GA Total Labor Labor/2nd/3rd Weight Sex Type Anes PTL Krystle A1 A5 Name Clin Para SAB Comments 06/13 Last Filed Vital Signs Vital Sign Reading Time Taken Comments Blood Pressure 122/84 03/28/2023 2:32 PM CDT Pulse - - Temperature - - Respiratory Rate - - Oxygen Saturation - - Inhaled Oxygen Concentration - - Weight 83 kg (183 lb) 03/28/2023 2:32 PM CDT Height - - Body Mass Index - - Plan of Treatment Health Maintenance Due Date Last Done Comments Breast Cancer Screening-Mammogram 1979 Colon Cancer Screening-Colonoscopy 1979 Depression Screening 1979 Hepatitis C Screening 1979 DTaP/Tdap/Td Vaccine (5 - Tdap) 1990 07/03/1985, 04/02/1980, 01/23/1980, Additional history exists Varicella Vaccines (1 of 2 - 13+ 2-dose series) 1992 Hepatitis B Screening 1997 Cervical Cancer Screening 03/28/2024 03/28/2023 Regular Well Visit/Exam 18-64 03/28/2024 03/28/2023 Covid-19 Vaccine ( - season) 2024 08/18/2021, 11/27/2020, 10/29/2020 Influenza Vaccine (#1) 2024 , 06/26/2019, 07/03/2018 HPV Vaccines Aged Out No longer eligi ble based on patient's age to complete this topic Pneumococcal vaccine <65 Aged Out No longer eligible based on patient's age to complete this topic Procedures Procedure Name Priority Date/Time Associated Diagnosis Comments PAP AND HIGH RISK HPV, REFLEX TO GENOTYPING Routine 03/28/2023 9:26 AM CDT Well woman exam from Last 3 Months or Most Recently Relevant to Health Maintenance Results * Pap and High Risk HPV, reflex to Genotyping (03/28/2023 9:26 AM CDT) Thin prep (Pap test) 03/28/2023 9:26 AM CDT 03/29/2023 9:26 AM CDT Narrative PATHOLOGY [facility] - 04/02/2023 4:03 PM CDT [facility] Department of Pathology [address] [place] [address] Final Report with Addendum Note to Patients: This report may contain a detailed description of human tissue sent by a health care provider to the laboratory for pathologic evaluation. The content of this report is essential for diagnosis and may provide important critical findings. This information may be unfamiliar to patients to review without a medical professional present. It is advised that the patient review this report in the presence of a health care provider who can answer questions and explain the details. Patient Name: CYNTHIA IGLESIAS Address: [address] [place] [address] Gender: F : 1980 (Age: 42) Service: Location: Hospital #: [id number] Patient Type: [facility] SPECIMEN Taken: 03/28/2023 Received: 03/29/2023 Accessioned:: 03/30/2023 Reported: 04/02/2023 Physician(s): Steve Gill M.D. [facility] Diagnosis: SOURCE OF SPECIMEN SCREENING THIN PREP IMAGED PAP w/ HPV: STATEMENT OF ADEQUACY - Satisfactory for evaluation; endocervical/transformation zone component present GENERAL CATEGORIZATION: - Negative for intraepithelial lesion or malignancy QUINN Magdaleno(ASCP) Report Electronically Reviewed and Signed Out By QUINN Magdaleno(ASCP) 04/02/2023 16:03:53Addenda: HPV Test Interpretation NEGATIVE for types 16, 18, 31, 33, 35, 39, 45, 51, 52, 56, 58, 59, 66 and 68. Test performed utilizing Gen-Probe Aptima assay. QUINN Stafford(ASCP)Report Electronically Reviewed and Signed Out By QUINN Stafford(ASCP) 04/02/2023 11:20:02 Specimen(s) Received: A: SCREENING THIN PREP IMAGED PAP w/ HPV Clinical History: Contraceptive History: IUD The Pap test is a screening test used to aid in the detection of cervical cancer and its precursors. It should not be the sole means by which malignant and premalignant lesions are diagnosed. Both false negative and false positive results may occur. It also has poor sensitivity for the detection of endometrial lesions and should not be used to evaluate suspected endometrial abnormalities. For these reasons it is most important to obtain Pap tests at regular intervals. The performance characteristics of some immunohistochemical stains, fluorescence in-situ hybridization tests and immunophenotyping by flow cytometry cited in this report (if any) were determined by the Surgical Pathology Department at [facility] as part of an ongoing senior quality control inspector program and in compliance with federally mandated regulations drawn from the Clinical Laboratory Improvement Act of 1988 (CLIA '88). Some of these tests rely on the use of analyte specific reagents and are subject to specific labeling requirements by the US Food and Drug Administration. Such diagnostic tests may only be performed in a facility that is certified by the Department of Health and Human Services as a high complexity laboratory under CLIA '88. The FDA has determined that such clearance or approval is not necessary. This test is used for clinical purposes. It should not be regarded as investigational or for research. Nevertheless, federal rules concerning the medical use of analyte specific reagents require that the following disclaimer be attached to the report: This test was developed and its performance characteristics determined by the Surgical Pathology Department [facility]. It has not been cleared or approved by the U. S. Food and Drug Administration. Steve Gill MD LAB CYTOLOGY ORDERABLES Final Result [facility] from Last 3 Months or Most Recently Relevant to Health Maintenance Insurance [employer] [facility] [employer] [facility] [employer]O Address: [address] [address] [place] [address] [facility] [employer] [facility] [employer] Address: [address] [address] [place] [address] [employer]PA Care Teams Reprographics Technician Relationship Specialty Start Date End Date No, Physician PCP - General 02/16/23
--- OUTSIDE RECORDS SUMMARY | 2024-11-03 07:33 | XMS_ITS | Clinical Summary ---
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 Gender Identity Not on file Sexual Orientation Not on file Plan of Treatment Health Maintenance Due Date Last Done Comments Hepatitis C Virus (HCV) Screening 1980 TdaP Immunization 1979 Hepatitis B Immunization (1 of 3 - 19+ 3-dose series) 1998 Pap Smear 2000 Cervical Cancer Screening (CCS) 2009 HPV/Cotest 2009 Discussion re Starting/Frequency of Mammograms 2019 Influenza Immunization (#1) 2024 06/26/2019, 1 SARS-COV-2 Immunization ( season) 2024 Colonoscopy 2024 Colorectal Cancer Screening 2024 Respiratory Syncytial Virus (RSV) Immunization (Adult) (1 - 1-dose 75+ series) 2054 DTaP/Tdap/Td Immunization Discontinued 1984, 04/02/1980, 01/23/1980, Additional history exists Meningococcal Immunization (ACWY) Aged Out No longer eligible based on patient's age to complete this topic Pneumococcal Immunization Combined Aged Out No longer eligible based on patient's age to complete this topic Rotavirus Immunization Aged Out No lo nger eligible based on patient's age to complete this topic
--- OUTSIDE RECORDS SUMMARY | 2024-11-03 07:33 | XMS_ITS | Clinical Summary ---
Author Organization [facility] Address [address] [place] [place] [address] Care Team Providers Care Fire Control Technician Name Role Phone Nahid Siblye MD Primary Care Provider + [phone] Source Comments [facility],non-owned Affiliates and Associated Physician Practices is amultiple site organization consisting of ambulatory clinics and hospital sitesin [place], [place], [place] and [place]. This disclosure is being madepursuant to the Care Everywhere program and may not contain all information available regarding this patient. Last updated 18.[facility] Social History Tobacco Use Types Packs/Day Years Used Date Smoking Tobacco: Never Assessed Sex and Gender Information Value Date Recorded Sex Assigned at Not on file Gender Identity Not on file Sexual Orientation Not on file Plan of Treatment Health Maintenance Due Date Last Done Comments COLOGUARD (AGES 45-75) - COL ON CA SCREENING 1979 COLON MONITORING 1979 COLONOSCOPY - COLON CA SCREENING 1979 CT COLONOGRAPHY - COLON CA SCREENING 1979 Colorectal Cancer Screening 1979 FIT - COLON CA SCREENING 1979 FLEX SIG - COLON CA SCREENING 1979 LIPID TESTING 1979 MAMMOGRAM 1979 PAP SMEAR 1979 HIV SCREENING 1994 HEPATITIS C SCREENING 10/08/1997 DTAP/TDAP/TD VACCINES (1 - Tdap) 1998 HEPATITIS B VACCINE (1 of 3 - 19+ 3-dose series) 1998 COVID-19 VACCINE (1 2023-2 5 season) 2024 INFLUENZA VACCINE (#1) 2024 DEPRESSION SCREENING 09/17/2024 ZOSTER VACCINE (1 of 2) 2029 HIB VACCINE Aged Out No longer eligi ble based on patient's age to complete this topic HPV VACCINE Aged Out No longer eligi ble based on patient's age to complete this topic MENINGOCOCCAL (Group B) VACCINE Aged Out No longer eligible based on patient's age to complete this topic MENINGOCOCCAL VACCINE Aged Out No sarah gerardo eligible based on patient's age to complete this topic PNEUMOCOCCAL VACCINE Aged Out No long er eligible based on patient's age to complete this topic Care Teams Fire Control Technician Relationship Specialty Start Date End Date Nahid Sibley MD [address] [facility] [place] [phone] PCP - General 07/01/19
--- OUTSIDE RECORDS SUMMARY | 2024-11-03 07:33 | XMS_ITS | Referral Summary ---
Author Organization [facility] Address [address] [place] [address] Care Team Providers Care Toppiece Cutter Name Role Phone Nahid Sibley MD Primary Care Provider + [phone] Source Comments [facility],non-[facility] Affiliates and Associated Physician Practices is amultiple site organization consisting of ambulatory clinics and hospital sitesin [place], [place], [place] and [place]. This disclosure is being madepursuant to the Care Everywhere program and may not contain all information available regarding this patient. Last updated 18.[facility] Social History Tobacco Use Types Packs/Day Years Used Date Smoking Tobacco: Never Assessed Sex and Gender Information Value Date Recorded Sex Assigned at Not on file Gender Identity Not on file Sexual Orientation Not on file Plan of Treatment Not on file Care Teams Toppiece Cutter Relationship Specialty Start Date End Date Nahid Sibley MD [address] [place] [phone] PCP - General 07/01/19
--- OUTSIDE RECORDS SUMMARY | 2024-11-03 07:33 | XMS_ITS | Referral Summary ---
Author Organization [facility] Address [address] [place] [phone] Care Team Providers Care Hansard Reporter Name Role Phone No, Physician Primary Care Provider [phone] Allergies No known active allergies Medications clonazePAM (KlonoPIN) 0.5 mg tablet Take by mouth daily as needed 03/03/2023 Active escitalopram (LEXAPRO) 5 mg tablet Take 1 tablet (5 mg total) by mouth daily 03/03/2023 Active Active Problems No known active problems Social History Tobacco Use Types Packs/Day Years Used Date Smoking Tobacco: Never Assessed Comments No Sex and Gender Information Value Date Recorded Sex Assigned at Not on file 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 Gender Identity Female 09/12/2023 12:34 PM 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 Sexual Orientation Not on file Last Filed Vital Signs Vital Sign Reading Time Taken Comments Blood Pressure 122/84 03/28/2023 2:32 PM CDT Pulse - - Temperature - - Respiratory Rate - - Oxygen Saturation - - Inhaled Oxygen Concentration - - Weight 83 kg (183 lb) 03/28/2023 2:32 PM CDT Height - - Body Mass Index - - Plan of Treatment Not on file Procedures Procedure Name Priority Date/Time Associated Diagnosis Comments PAP AND HIGH RISK HPV, REFLEX TO GENOTYPING Routine 03/28/2023 9:26 AM CDT Well woman exam from Last 3 Months or Most Recently Relevant to Health Maintenance Results * Pap and High Risk HPV, reflex to Genotyping (03/28/2023 9:26 AM CDT) Thin prep (Pap test) 03/28/2023 9:26 AM CDT 03/29/2023 9:26 AM CDT Narrative PATHOLOGY [facility] - 04/02/2023 4:03 PM CDT Department of Pathology [address] [place], [place] [id number] Final Report with Addendum Note to Patients: [...] the details. Patient Name: CYNTHIA IGLESIAS Address: [address] [place] [address] Gender: F : 1980 (Age: 42) Service: Location: [facility] : [id number] Hospital #: [id number] Patient Type: [facility] SPECIMEN Taken: 03/28/2023 Received: 03/29/2023 Accessioned:: 03/30/2023 Reported: 04/02/2023 Physician(s): Steve Gill M.D. [facility] Diagnosis: SOURCE OF SPECIMEN SCREENING THIN PREP IMAGED PAP w/ HPV: STATEMENT OF ADEQUACY - Satisfactory for evaluation; endocervical/transformation zone component present GENERAL CATEGORIZATION: - Negative for intraepithelial lesion or malignancy QUINN Magdaleno(ASCP) Report Electronically Reviewed and Signed Out By RONDA MagdalenoASC) 04/02/2023 16:03:53Addenda: HPV Test Interpretation NEGATIVE for types 16, 18, 31, 33, 35, 39, 45, 51, 52, 56, 58, 59, 66 and 68. Test performed utilizing Gen-Probe Aptima assay. QUINN Stafford(ASCP)Report Electronically Reviewed and Signed Out By RONDA StaffordASCP) 04/02/2023 11:20:02 Specimen(s) Received: A: SCREENING THIN [...] determined by the Surgical Pathology Department at as part of an ongoing quality assurance nurse program and in compliance with federally mandated [...] characteristics determined by the Surgical Pathology Department [facility]. It has not been cleared or approved by the U. [place]. Food and Drug Administration. Steve Gill MD LAB CYTOLOGY ORDERABLES Final Result [facility] from Last 3 Months or Most Recently Relevant to Health Maintenance Insurance IDPA [facility] CHOICE PLUS [facility] CHOICE PLUS IDPA Care Teams Hansard Reporter Relationship Specialty Start Date End Date No, Physician PCP - General 02/16/23
--- OUTSIDE RECORDS SUMMARY | 2024-11-03 07:33 | XMS_ITS | Patient Health Summary ---
Author Organization [facility] Address [address] [address] Care Team Providers Care Warehouse Analyst Name Role Phone Nahid Sibley MD Primary Care Provider + [phone] Note from [facility],non-owned Affiliates and Associated Physician Practices is amultiple site organization consisting of ambulatory clinics and hospital sitesin [place], [place], [place] and [place]. This disclosure is being madepursuant to the Care Everywhere program and may not contain all information available regarding this patient. Last updated 18.[facility] Social History Tobacco Use Types Packs/Day Years Used Date Smoking Tobacco: Never Assessed Sex and Gender Information Value Date Recorded Sex Assigned at Not on file Gender Identity Not on file Sexual Orientation Not on file Procedures * CHROMOSOME ANALYSIS MICROARRAY PANEL(Performed 11/09/2009) Performed for Female Genetic Test NEC * CHROMOSOME ANALYSIS BLOOD PANEL(Performed 11/09/2009) Performed for Female Genetic Test NEC Results * CHROMOSOME ANALYSIS MICROARRAY PANEL (11/09/2009 12:30 PM USED CAR SALES MANAGER) Chromosome Analysis MicroArray See Separate Report [facility] BLOOD SPECIMEN / Unknown 11/09/2009 12:30 PM USED CAR SALES MANAGER Fanny De La Torre MD LAB - CHEMISTRY BHUPINDER FOWLER Performing Organization Address City/State/[facility] de Phone Number [facility] * CHROMOSOME ANALYSIS BLOOD PANEL (11/09/2009 12:00 AM USED CAR SALES MANAGER) Chromosome Analysis Blood See Separate Report [facility] BLOOD SPECIMEN / Unknown 11/09/2009 Fanny De La Torre MD LAB - PATHOLOGY/CYTO LOGY ORDERABLES Performing Organization Address [facility] Co de Phone Number [facility] Care Teams Warehouse Analyst Relationship Specialty Start Date End Date Nahid Sibley MD [address] [place] [phone] PCP - General 07/01/19
[2024-11-03 08:16] LABS: Hematocrit 44.4 % (37.0-47.0); Hemoglobin 14.2 g/dL (12.0-15.0); Mean Corpuscular Hemoglobin 29.4 pg (26-34); Mean Corpuscular Volume 91.9 fl (80-100); Mean Platelet Volume 9.6 fl (7.4-10.4); Platelet Count Result 231 k/mm3 (150-375); Red Blood Count 4.83 M/mm3 (4.2-5.4); Red Cell Distribution Width 12.5 % (11.5-14.5); White Blood Count 5.4 K/mm3 (4.5-10.0)
[2024-11-03 08:23] LABS: Alanine Aminotransferase 38 U/L (6-35); Albumin Level 4.1 g/dL (3.5-5.1); Alkaline Phosphatase 61 U/L (38-126); Anion Gap 8 mmol/L (4-12); Aspartate Amino Transferase 38 U/L (14-36); Bilirubin,Total 0.6 mg/dL (0.2-1.3); Blood Urea Nitrogen 13 mg/dL (7-17); Calcium 9.3 mg/dL (8.4-10.2); Carbon Dioxide 30 mmol/L (22-30); Chloride 102 mmol/L (98-107); Cholesterol 209 mg/dL (0-200); Estimated Glomerular Filt Rate > 60; Glucose 114 mg/dL (65-110); HDL Direct 46 mg/dL; Sodium 140 mmol/L (137-145); Triglycerides 139 mg/dL (<150)
[2024-11-03 08:34] LABS: LDL Cholesterol Direct 143 mg/dL
[2024-11-03 09:03] LABS: Thyroid Stimulating Hormone Reflex 0.752 uIU/mL (0.465-4.68)
[2024-11-03 12:41] LABS: Hemoglobin A1C 6.1 % (<5.7)
== END 2024-11-03 07:30 | disposition home or self-care (01) ==
LOC: ANHLAB 07:30
PROVIDERS: PCP Nurse Practitioner Family; Visit Provider Nurse Practitioner Family
DX: F44.9 Dissociative and conversion disorder, unspecified (principal); F41.9 Anxiety disorder, unspecified; J44.9 Chronic obstructive pulmonary disease, unspecified; F17.200 Nicotine dependence, unspecified, uncomplicated; E66.9 Obesity, unspecified; Z00.00 Encounter for general adult medical examination without abnormal findings; Z76.89 Persons encountering health services in other specified circumstances; Z68.32 Body mass index [BMI] 32.0-32.9, adult; Z13.29 Encounter for screening for other suspected endocrine disorder; Z13.1 Encounter for screening for diabetes mellitus; Z13.0 Encounter for screening for diseases of the blood and blood-forming organs and certain disorders involving the immune mechanism; Z13.220 Encounter for screening for lipoid disorders
CPT/HCPCS: 36415; 80053; 80061; 83036; 84443; 85027

== ENCOUNTER 2025-04-15 09:02 | Outpatient (CLI) | payer OTHER, MEDICAID, SELFPAY ==
--- OUTSIDE RECORDS SUMMARY | 2025-04-15 09:17 | XMS_ITS | Clinical Summary ---
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 Gender Identity Not on file Sexual Orientation Not on file Plan of Treatment Health Maintenance Due Date Last Done Comments Hepatitis C Virus (HCV) Screening 1979 TdaP Immunization 1979 Human Papillomavirus (HPV) Immunization (1 - 3-dose series) 1994 Hepatitis B Immunization (1 of 3 - 19+ 3-dose series) 1998 Pap Smear 2000 Cervical Cancer Screening (CCS) 2009 HPV/Cotest 2009 SARS-COV-2 Immunization ( - season) 2024 Cologuard 2024 Colonoscopy 2024 Colorectal Cancer Screening 2024 Immunochemical Fecal Occult Blood 2024 Influenza Immunization (#1) 2025 06/26/2019, 1 Respiratory Syncytial Virus (RSV) Immunization (Adult) (1 [...]
[2025-04-15 09:58] LABS: Hemoglobin A1C 6.7 % (<5.7)
[2025-04-15 10:14] LABS: Alanine Aminotransferase 59 U/L (6-35); Albumin Level 3.8 g/dL (3.5-5.1); Alkaline Phosphatase 53 U/L (38-126); Aspartate Amino Transferase 45 U/L (14-36); Bilirubin,Total 0.5 mg/dL (0.2-1.3); Cholesterol 194 mg/dL (0-200); HDL Direct 38 mg/dL; Total Protein 6.1 g/dL (6.3-8.2); Triglycerides 228 mg/dL (<150)
== END 2025-04-15 09:03 | disposition home or self-care (01) ==
LOC: ANHLAB 09:04
PROVIDERS: PCP Nurse Practitioner Family; Visit Provider Nurse Practitioner Family
DX: E78.5 Hyperlipidemia, unspecified (principal); R74.8 Abnormal levels of other serum enzymes; R73.03 Prediabetes
CPT/HCPCS: 36415; 80061; 80076; 83036